=== PATIENT | male | born 1950 | race Caucasian/White ===

== ENCOUNTER 2024-03-06 18:34 | Emergency (ER) | payer MEDICARE, MEDICAID ==
[~2024-03-06] VITALS: Ht 182.9 cm; Wt 95.8 kg
[2024-03-06 21:32] VITALS: BP 150/90; PULSE 78; RESP 14; TEMP 98.3; O2SAT 98
== END 2024-03-06 21:46 | disposition home or self-care (01) ==
LOC: ER 18:35
DX: S00.01XA Abrasion of scalp, initial encounter (principal); Z88.0 Allergy status to penicillin; X58.XXXA Exposure to other specified factors, initial encounter; Y93.89 Activity, other specified; Y92.89 Other specified places as the place of occurrence of the external cause; Y99.8 Other external cause status
CPT/HCPCS: 70450; 72125; 99284; A6402; A6449